=== PATIENT | female | born 1995 | race African-American/Black ===

== ENCOUNTER → 2016-03-25 | Outpatient (CLI) | payer MEDICAID ==
[~2016-03-25] MED LIST: COLA100C3 PO; DIFL150T PO; FERR325T PO; IBUP-232 PO; OXYC1TAB63 PO; PRENTAB16
== END ==
LOC: HPND 10:49
PROVIDERS: ATTEND Family Medicine
DX: O26.849 Uterine size-date discrepancy, unspecified trimester (principal)
CPT/HCPCS: 76816

== ENCOUNTER 2016-04-16 16:02 | Inpatient (IN) | payer MEDICAID ==
[~2016-04-16] VITALS: Ht 157.5 cm; Wt 89.8 kg
[~2016-04-16 16:02] MED LIST changes: -COLA100C3 PO; -DIFL150T PO; -IBUP-232 PO; -OXYC1TAB63 PO
[2016-04-19] VITALS (10 sets, daily range): BP systolic 115–148; BP diastolic 69–78; PULSE 86–106; RESP 16–20; TEMP 97.7–98.4; O2SAT 100
[2016-04-19] MEDS ORDERED: LACTATED RINGER'S 1000 ML INJ 1,000 ML IV ONE (07:11)
[2016-04-19] MEDS ORDERED: LACTATED RINGER'S 1000 ML INJ 1,000 ML IV SCH ×2 (07:41→15:08)
--- NOTE | 2016-04-19 07:50 | HHI.HP ---
HPI Chief Complaint for repeat CS BTL Date Seen: Apr 19, 2016 Time Seen: 07:40 Travel History International Travel<30 Days: No Contact w/Intl Traveler<30Days: No Known Affected Area: No History of Present Illness HPI previous CS x1 desires elective repeat with BTL at 39 1/7 weeks Para: 3 : 4 History Past Medical History Medical History: Denies Significant Hx Obstetric History Obstetric History x1 and csx1 Past Surgical History Narrative Surgical cs x 1 Family History Family History: Negative Social History Alcohol Use: No Tobacco Use: No Substance Abuse: No Allergies-Medications (Allergen,Severity, Reaction): Coded Allergies: No Known Allergies (Verified , 04/16/16) Home Meds Active Scripts Ferrous Sulfate 325 Mg Uhs064 Mg PO BID #60 TAB Ref 5 Prov:Cris Shah MD R2 01/20/16 Reported Medications Vit W/ Ferrous Fumara ( Complete 14-0.4 mg)1 Tab Tab 01/20/16 Physical Exam Vital Signs Date Time Temp Pulse Resp B/P Pulse Ox O2 Delivery O2 Flow Rate FiO2 04/19/16 07:15 18 04/19/16 07:11 106 115/69 Narrative GENERAL: Well-nourished, well-developed patient. SKIN: Warm and dry. HEAD: Normocephalic and atraumatic. EYES: No scleral icterus. No injection or drainage. ENT: No nasal drainage noted. Mucous membranes pink. Airway patent. NECK: Supple, trachea midline. No JVD. CARDIOVASCULAR: Regular rate and rhythm without murmurs, gallops, or rubs. RESPIRATORY: Breath sounds equal bilaterally. No accessory muscle use. BREASTS: Bilateral exam showed no masses , no retractions, no nipple discharge. ABDOMEN/GI: Abdomen soft, non-tender, bowel sounds present, no rebound, no guarding Gravid to 39 weeks size Fundal Height: [-] GENITOURINARY: External Genitalia: intact and normal in appearance BUS glands: [-] Cervix: [-] Dilatation: cl Effacement: [-] Station: vtx Presentation: [-] Membranes: intact Uterine Contractions: [-] FHT's: Category: 1 Baseline: [-] Reactive: [-] Variability: [-] Decels: [-] EXTREMITIES: No cyanosis or edema. BACK: Nontender without obvious deformity. No CVA tenderness. NEUROLOGICAL: Awake and alert. Motor and sensory grossly within normal limits. Five out of 5 muscle strength in all muscle groups. Normal speech. Data Data Vital Signs Reviewed: Yes Orders Admit To Inpatient (04/19/16 ) Code Status (04/19/16 07:11) Vital Signs (Adult) .ON ADMISSION (04/19/16 07:11) Activity Oob Ad Hannah (04/19/16 07:11) ^ Heart (04/19/16 07:11) Urinary Catheter Management NICOLE.Q8H (04/19/16 07:11) ^ Preps (04/19/16 07:11) Scd / Cosme / Foot Pump NICOLE.QSHIFT (04/19/16 07:11) ^ Ultrasound For Locatio (04/19/16 07:11) Diet Npo (04/19/16 Breakfast) Lactated Ringer's 1000 Ml Inj (Lr 1000 M (04/19/16 07:11) Lactated Ringer's 1000 Ml Inj (Lr 1000 M (04/19/16 07:41) Cefazolin 2 Gm Premix (Ancef 2 Gm Premix (04/19/16 08:15) Citric Acid-Sodium Citrate Liq (Bicitra (04/19/16 08:45) Type And Screen (04/19/16 07:11) Complete Blood Count With Diff (04/19/16 07:11) Urinalysis - C+S If Indicated (04/19/16 07:11) Inpatient Certification (04/19/16 ) Specimen To Be Collected PRN (04/19/16 07:11) Assessment/Plan Problem List: (1) Term , repeat (2) Previous section (3) Request for sterilization Assessment and Plan for CS BTL Mario Alberto Arvizu MD Apr 19, 2016 07:50
[2016-04-19 08:14] LABS: AUTOMATED NEUTROPHIL # 8.3 TH/MM3 (1.8-7.7); BASOPHIL # 0.1 TH/MM3 (0-0.2); BASOPHIL % 0.6 % (0.0-2.0); EOSINOPHIL # 0.1 TH/MM3 (0-0.4); EOSINOPHIL % 0.9 % (0.0-4.0); HEMATOCRIT 26.8 % (35.0-46.0); HEMO FLAGS DIFF FINAL; LYMPH % 23.9 % (9.0-44.0); LYMPHOCYTE # 2.9 TH/MM3 (1.0-4.8); MEAN CELL VOLUME 80.1 FL (80.0-100.0); MEAN CORPUSCULAR HEMOGLOBIN 25.8 PG (27.0-34.0); MEAN CORPUSCULAR HGB CONC 32.2 % (32.0-36.0); MONO % 5.8 % (0.0-8.0); NEUT % 68.8 % (16.0-70.0); PLATELET COUNT 254 TH/MM3 (150-450); RED BLOOD COUNT 3.35 MIL/MM3 (4.00-5.30); RED CELL DISTRIBUTION WIDTH 20.1 % (11.6-17.2); WHITE BLOOD COUNT 12.1 TH/MM3 (4.0-11.0)
[2016-04-19] MEDS ORDERED: ceFAZolin 2 GM PREMIX 50 ML IV SCH (08:15)
[2016-04-19 08:16] LABS: BACTERIA, URINE RARE /hpf; BLOOD, URINE NEG (NEG); COMMENT (UR) CULT NOT INDICATED; CULTURE IF INDICATED CULT NOT INDICATED; GLUCOSE,URINE NEG (NEG); KETONE, URINE NEG (NEG); MUCUS URINE FEW /lpf (OCC); NITRITE,URINE NEG (NEG); SQUAMOUS EPITHELIAL CELL URINE 1 /hpf (0-5); URINE COLOR LIGHT-YELLOW (YELLW/STRAW)
[2016-04-19] MEDS ORDERED: OXYTOCIN 10 UNIT/ML AMP ONE (08:38)
[2016-04-19] MEDS ORDERED: CITRIC ACID-SODIUM CITRATE LIQ 30 ML UDC PO SCH (08:45)
[2016-04-19] MEDS ORDERED: EPIDURAL-NALOXONE HCL 0.4 MG/ML AMP IV PRN (09:19)
[2016-04-19] MEDS ORDERED: EPIDURAL-DO NOT ADMINISTER ANTICOAGULANTS XX PRN (09:19)
[2016-04-19] MEDS ORDERED: EPIDURAL-DIPHENHYDRAMINE HCL 50 MG/ML VIAL IV PUSH PRN (09:19)
[2016-04-19] MEDS ORDERED: EPIDURAL-NO SYSTEMIC NARCOTICS XX PRN (09:19)
[2016-04-19] MEDS ORDERED: EPIDURAL-DIPHENHYDRAMINE HCL 50 MG CAP PO PRN (09:19)
--- NOTE | 2016-04-19 10:13 | PD.OB.DELI ---
Procedure Note Section Procedure Pre Op Diagnosis: (1) Term , repeat (2) Previous section Post Op Diagnosis: (1) Previous section (2) Request for sterilization Performed by Mario Alberto Arvizu Procedure: Repeat Low Transverse Sec, Other (BTL) Informed consent obtained: For anesthesia, For procedure Confirmed correct: Patient, Procedure, Time-out taken Anesthesia: Spinal Urinary catheter: Inserted using sterile technique, To dependent drainage Sterile preparation: Duraprep, In usual fashion Position: Supine with wedge to left side Operative Features Skin Incision: Pfannenstiel Uterine Incision: Low transverse w/knife / blunt ext Membranes Ruptured: Artificially Presentation: Occiput anterior Delivery of infant: Uneventful : Female, Single One Minute : 9 Five Minute : 9 Weight: 3050 Status of : Viable Placenta delivered: Intact Medications: Antibiotics Estimated blood loss: 500 Procedure tolerated: Well Maternal Condition: Stable Condition: Stable Mario Alberto Arvizu MD Apr 19, 2016 10:13
[2016-04-19] MEDS ORDERED: MIDAZOLAM HCL 5 MG/5 ML VIAL ONE (10:14)
[2016-04-19] MEDS ORDERED: MORPHINE SULFATE PF 5 MG/10 ML VIAL ONE (10:14)
[2016-04-19] MEDS ORDERED: SODIUM CHLORIDE 0.9% FLUSH 5 ML FLUSH IV PRN (10:15)
[2016-04-19] MEDS ORDERED: oxyCODONE/ACETAMINOPHEN 5 MG/325 MG TAB PO PRN (10:15)
[2016-04-19] MEDS ORDERED: SIMETHICONE 80 MG CHEWABLE TAB PO PRN (10:15)
[2016-04-19] MEDS ORDERED: OXYTOCIN 30 UNITS-500ML PREMIX 500 ML IV ONE (10:15)
[2016-04-19] MEDS ORDERED: KETOROLAC TROMETHAMINE 60 MG/2 ML (IM) VIAL IM PRN (10:15)
[2016-04-19] MEDS ORDERED: KETOROLAC TROMETHAMINE 30 MG/ML (IVP) VIAL ONE (10:39)
--- NOTE | 2016-04-19 10:59 | MP ---
cc: ESPERANZA ARVIZU DATE OF SURGERY: 04/19/2016 PROCEDURE Repeat low transverse section, bilateral tubal ligation. PREOPERATIVE DIAGNOSIS Desires permanent sterilization and a repeat . POSTOPERATIVE DIAGNOSIS Desires permanent sterilization and a repeat . SURGEON Dr. Esperanza Arvizu. ESTIMATED BLOOD LOSS 500 ccs. COMPLICATIONS None. ANESTHESIA Anesthesia was spinal, Dr. Kapil Reyes. COMPLICATIONS None. SPECIMEN Includes segment of left and right fallopian tube. PROCEDURE IN DETAIL After informed consent the patient was taken to the operating room where she was placed under spinal anesthesia, placed in supine position, left lateral tilt. The abdomen, perineum, vagina were prepped and draped in normal sterile fashion. After adequate anesthesia was assured and time-out was taken, a Pfannenstiel skin incision was carried sharply to the old scar to fascia. Fascia was nicked in midline, incision was extended laterally using Alfaro scissors. Rectus muscle was dissected off the fascia with sharp and blunt dissection. We entered the abdomen under direct visualization with blunt traction. Bladder blade was placed in the abdomen and a bladder flap was created by dissecting the bladder off the lower uterine segment. Low-transverse uterine incision was then made, carried sharply to the uterine cavity. Clear fluid was noted. The incision was extended laterally using blunt traction upward and downward. A hand was placed into the uterus. The 's head was guided through the incision, using fundal pressure, the infant's head was readily delivered. Nose and mouth were suctioned well. Cord was clamped and cut. The was handed to pediatrics in attendance. Cord blood was collected. Placenta was delivered manually. Uterus was exteriorized and wiped free from all remaining products of conception. The uterine incision was then closed with running locking stitch of Chromic suture. Good hemostasis was achieved. The left and right fallopian tubes were tied in [place] fashion without difficulty. The uterus was placed back in the abdomen and noted to be hemostatic. Both tubes were noted to be hemostatic and the incision was hemostatic. Peritoneum was closed with Chromic suture. The fascia was closed with Vicryl suture. Skin was closed with subcuticular stitches. Each layer was noted to be hemostatic prior to closure. The patient tolerated the procedure well. MD HECTOR [place]/ELANA /10:12 AM /10:49 AM
[2016-04-19] MEDS ORDERED: ACETAMINOPHEN 1000 MG/100 ML VIAL IV ONE ×2 (11:16→12:30)
[2016-04-19] MEDS ORDERED: diphenhydrAMINE HCL 25 MG CAP PO PRN (12:15)
[2016-04-19] MEDS ORDERED: ONDANSETRON HCL 4 MG/2 ML VIAL IV PUSH PRN (14:15)
[2016-04-19 19:04] LABS: AMPHETAMINE, URINE NEG (NEG); BARBITURATES, URINE NEG (NEG); COCAINE, URINE NEG (NEG)
[2016-04-19] MEDS ORDERED: OXYTOCIN 30 UNITS-500ML PREMIX 500 ML IV PRN (20:15)
[2016-04-19] MEDS: IBUPROFEN 600 MG TAB PO PRN (21:06)
[2016-04-19] MEDS: oxyCODONE/ACETAMINOPHEN 5 MG/325 MG TAB PO PRN (21:06)
[2016-04-19] MEDS: SODIUM CHLORIDE 0.9% FLUSH 5 ML FLUSH IV SCH (22:28)
[2016-04-20 00:40] VITALS: BP 151/76; PULSE 75; RESP 17; TEMP 97.9
[2016-04-20 06:18] LABS: AUTOMATED NEUTROPHIL # 13.3 TH/MM3 (1.8-7.7); BASOPHIL % 0.1 % (0.0-2.0); EOSINOPHIL # 0.1 TH/MM3 (0-0.4); EOSINOPHIL % 0.3 % (0.0-4.0); HEMATOCRIT 23.8 % (35.0-46.0); HEMO FLAGS DIFF FINAL; LYMPH % 12.9 % (9.0-44.0); LYMPHOCYTE # 2.2 TH/MM3 (1.0-4.8); MEAN CELL VOLUME 80.2 FL (80.0-100.0); MEAN CORPUSCULAR HEMOGLOBIN 26.4 PG (27.0-34.0); MEAN CORPUSCULAR HGB CONC 32.9 % (32.0-36.0); MONO % 7.2 % (0.0-8.0); NEUT % 79.5 % (16.0-70.0); PLATELET COUNT 219 TH/MM3 (150-450); RED BLOOD COUNT 2.97 MIL/MM3 (4.00-5.30); RED CELL DISTRIBUTION WIDTH 19.8 % (11.6-17.2); WHITE BLOOD COUNT 16.8 TH/MM3 (4.0-11.0)
--- NOTE | 2016-04-20 07:31 | HHI.OB ---
Subjective Post Operative Day: 1 Remarks 20 year old female G 4 P4 s/p repeat and tubal ligation at 39/1 wks gestation, POD 1. AFVSS but BP has intermittently been elevated around 150s systolic. Patient reports she is feeling well. Bleeding is decreasing and pain is well-controlled. She is formula feeding and bonding well with baby. Ambulating without difficulties. She is tolerating a diet without nausea or vomiting. She has not had a bowel movement. Denies chest pain, dysuria, shortness of breath, VUONG, vision changes or calf pain. (Cris Shah MD R2) Objective Vitals/I&O Vital Signs Date Time Temp Pulse Resp B/P Pulse Ox O2 Delivery O2 Flow Rate FiO2 04/20/16 00:40 97.9 75 17 151/76 04/19/16 19:40 97.7 86 20 148/78 100 04/19/16 18:00 18 04/19/16 17:28 18 04/19/16 16:23 18 04/19/16 16:00 16 04/19/16 14:51 18 04/19/16 14:00 18 04/19/16 07:52 98.4 (Cris Shah MD R2) Result Diagram: 04/20/16 0558 Objective Remarks GENERAL: Well-nourished, well-developed patient. CARDIOVASCULAR: Regular rate and rhythm without murmurs, gallops, or rubs. RESPIRATORY: Breath sounds equal bilaterally. No accessory muscle use. ABDOMEN/GI: Abdomen soft, non-tender. Incision: Bandage over incision with small amount of drainage present. Fundus: Firm, non-tender at umbilicus. GENITOURINARY: Light to moderate bleeding. EXTREMITIES: No cyanosis or edema, non-tender, without signs of DVT. Medications and IVs Current Medications Medications (Trade) Dose Ordered Sig/Skyler Route Start Time Stop Time Status Last Admin (Lr 1000 ml Inj) 1,000 ml @ 100 mls/hr Q10H IV 04/19/16 15:08 04/20/16 11:07 (NS Flush) 2 ml BID IV 04/19/16 21:00 04/19/16 22:28 (NS Flush) 2 ml UNSCH PRN IV 04/19/16 10:15 (Mylicon Chew) 80 mg QID PRN PO 04/19/16 10:15 (Motrin) 600 mg Q6H PRN PO 04/19/16 10:15 04/19/16 21:06 (Toradol Inj) 30 mg Q6H PRN IM 04/19/16 10:15 04/20/16 10:14 04/19/16 10:40 (Percocet 5-325 Mg) 1 tab Q4H PRN PO 04/19/16 10:15 (Percocet 5-325 Mg) 2 tab Q4H PRN PO 04/19/16 10:15 04/19/16 21:06 (M-M-R Ii Inj) 0.5 ml ONCE ONCE SQ 04/20/16 16:00 04/20/16 16:01 (Boostrix Inj) 0.5 ml ONCE ONCE IM 04/20/16 16:00 04/20/16 16:01 (Benadryl) 25 mg Q4H PRN PO 04/19/16 12:15 04/19/16 12:31 Miscellaneous Information NO SYSTEMIC NARCOTICS TO BE GIVEN FO... UNSCH PRN XX 04/19/16 09:19 04/20/16 09:18 (Narcan Inj) 0.4 mg UNSCH PRN IV 04/19/16 09:19 04/20/16 09:18 (Benadryl Inj) 25 mg Q6H PRN IV PUSH 04/19/16 09:19 04/20/16 09:18 04/19/16 22:27 (Benadryl) 50 mg Q6H PRN PO 04/19/16 09:19 04/20/16 09:18 Miscellaneous Information ALL NURSING DEPARTMENTS UNSCH PRN XX 04/19/16 09:19 04/20/16 09:18 (Zofran Inj) 4 mg Q6H PRN IV PUSH 04/19/16 14:15 04/19/16 16:23 (Cris Shah MD R2) Assessment/Plan Problem List: (1) Term , repeat (2) Previous section (3) Request for sterilization Assessment and Plan 20 yo female s/p repeat and tubal ligation POD 1. - AFVSS, SBP slightly elevated but patient asymptomatic. Continue to monitor - Continue routine care * UDS positive for opiates and benzos but this was after CS. UDS otherwise negative - Motrin and Percocet PRN pain - Encourage OOB - Pelvic rest x 6 wks. Will need a f/u appt in 1wk for incision check which has already been made - Contraception: Tubal ligation - Recommend post follow up in 1 wk - Anticipate D/C in 1-[address] Ronquillo (Cris Shah MD R2) Attending Attestation Case reviewed and discussed with the resident team. Agree with plan of care as discussed with me and documented in the resident note.Nicolle Ronquillo M.D. ( Nicolle Ronquillo MD) Cris Shah MD R2 Apr 20, 2016 07:31 Nicolle Ronquillo MD Apr 20, 2016 11:11
[2016-04-20] MEDS: IBUPROFEN 600 MG TAB PO PRN ×3 (07:32→23:55)
[2016-04-20] MEDS: oxyCODONE/ACETAMINOPHEN 5 MG/325 MG TAB PO PRN ×5 (07:32→23:55)
[2016-04-20 08:40] VITALS: BP 141/89; PULSE 72; RESP 18; TEMP 97.6
[2016-04-20] MEDS ORDERED: MEASLES, MUMPS, RUBELLA VACCINE 0.5 ML VIAL SQ ONE (16:00)
[2016-04-20] MEDS ORDERED: DIPHTH/TETANUS/ACEL PERTUSSIS (BOOSTER) 0.5 ML VIAL/PFS IM ONE (16:00)
[2016-04-20 17:15] VITALS: BP 110/70; PULSE 106; RESP 18; TEMP 98.9
--- NOTE | 2016-04-20 19:01 | HHI.OB ---
Subjective Post Day: 1 Remarks doing well ok for DC home POD # 2 wed 04/21 Objective Vitals/I&O Vital Signs Date Time Temp Pulse Resp B/P Pulse Ox O2 Delivery O2 Flow Rate FiO2 04/20/16 17:15 106 18 110/70 04/20/16 17:15 98.9 04/20/16 08:40 97.6 18 04/20/16 08:40 72 141/89 04/20/16 00:40 97.9 75 17 151/76 04/19/16 19:40 97.7 86 20 148/78 100 Objective Remarks GENERAL: Well-nourished, well-developed patient. . ABDOMEN/GI: Abdomen soft, non-tender. incision healing Fundus: Firm, non-tender at umbilicus. GENITOURINARY: Light to moderate bleeding. EXTREMITIES: No cyanosis or edema, non-tender, without signs of DVT. Medications and IVs Current Medications Medications (Trade) Dose Ordered Sig/Skyler Route Start Time Stop Time Status Last Admin (NS Flush) 2 ml BID IV 04/19/16 21:00 04/19/16 22:28 (NS Flush) 2 ml UNSCH PRN IV 04/19/16 10:15 (Mylicon Chew) 80 mg QID PRN PO 04/19/16 10:15 (Motrin) 600 mg Q6H PRN PO 04/19/16 10:15 04/20/16 15:13 (Percocet 5-325 Mg) 1 tab Q4H PRN PO 04/19/16 10:15 (Percocet 5-325 Mg) 2 tab Q4H PRN PO 04/19/16 10:15 04/20/16 15:14 (Benadryl) 25 mg Q4H PRN PO 04/19/16 12:15 04/19/16 12:31 (Zofran Inj) 4 mg Q6H PRN IV PUSH 04/19/16 14:15 04/19/16 16:23 Assessment/Plan Problem List: (1) Term , repeat (2) Previous section (3) Request for sterilization Assessment and Plan 20 yo female s/p repeat and tubal ligation POD 1. - AFVSS, SBP slightly elevated but patient asymptomatic. Continue to monitor - Continue routine care * UDS positive for opiates and benzos but this was after CS. UDS otherwise negative - Motrin and Percocet PRN pain - Encourage OOB - Pelvic rest x 6 wks. Will need a f/u appt in 1wk for incision check which has already been made - Contraception: Tubal ligation - Recommend post follow up in 1 wk - Anticipate D/C in 1-[address] Ronquillo Discharge Planning dc in AM Mario Alberto Arvizu MD Apr 20, 2016 19:01
[2016-04-21] MEDS: oxyCODONE/ACETAMINOPHEN 5 MG/325 MG TAB PO PRN ×2 (04:14→08:26)
[2016-04-21] MEDS: IBUPROFEN 600 MG TAB PO PRN (05:51)
[2016-04-21] MEDS ORDERED: IBUP-232 PO (06:35)
[2016-04-21] MEDS ORDERED: OXYC1TAB63 PO (06:35)
--- NOTE | 2016-04-21 06:36 | HHI.DCPOC ---
Discharge Care Plan Diagnosis: (1) delivery delivered (2) Status post tubal ligation Report Symptoms to Your Doctor -Temperate above 100.5 degrees -Redness, of incision or excessive or foul smelling drainage -Unusual pain or calf pain -Increased vaginal bleeding -Painful or difficulty urinating -Feelings of extreme sadness or anxiety after 2 weeks Goals to Promote Your Health * To prevent worsening of your condition and complications * To maintain your health at the optimal level Directions to Meet Your Goals Take your medications as prescribed Follow your dietary instruction Follow activity as directed Ensure plenty of rest for recovery Drink fluids for hydration Keep your appointments as scheduled Take your immunizations and boosters as scheduled If your symptoms worsen call your PCP, if no PCP go to Urgent Care Center or Emergency Room Smoking is Dangerous to Your Health. Avoid second hand smoke Call the 24-hour crisis hotline for domestic abuse at Cris Shah MD R2 Apr 21, 2016 06:36
[2016-04-21] MEDS ORDERED: COLA100C3 PO (06:57)
[2016-04-21] MEDS ORDERED: DOCUSATE SODIUM 100 MG CAP PO ONE (07:00)
--- NOTE | 2016-04-21 07:19 | HHI.OB ---
Subjective Post Operative Day: 2 Remarks 20 year old female G 4 P4 s/p repeat and tubal ligation at 39/1 wks gestation, POD 2. AFVSS but BP continues to be intermittently elevated around 140-150s systolic. Patient reports she is feeling well and is ready to go. Bleeding is decreasing and pain is well-controlled. She is formula feeding and bonding well with baby. Ambulating without difficulties. She is tolerating a diet without nausea or vomiting. She has not had a bowel movement. Denies chest pain, dysuria, shortness of breath, VUONG, vision changes or calf pain. (Cris Spencer MD R2) Objective Vitals/I&O Vital Signs Date Time Temp Pulse Resp B/P Pulse Ox O2 Delivery O2 Flow Rate FiO2 04/20/16 17:15 106 18 110/70 04/20/16 17:15 98.9 04/20/16 08:40 97.6 18 04/20/16 08:40 72 141/89 (Cris Shah MD R2) Result Diagram: 04/20/16 0558 Objective Remarks GENERAL: Well-nourished, well-developed patient. CARDIOVASCULAR: Regular rate and rhythm without murmurs, gallops, or rubs. RESPIRATORY: Breath sounds equal bilaterally. No accessory muscle use. ABDOMEN/GI: Abdomen soft. Incision: Clean but with minimal dried blood at left side of lesion but not actively draining. Fundus: Firm, mildy tender at umbilicus. GENITOURINARY: Light to moderate bleeding. EXTREMITIES: No cyanosis or edema, non-tender, without signs of DVT. Medications and IVs Current Medications Medications (Trade) Dose Ordered Sig/Skyler Route Start Time Stop Time Status Last Admin (NS Flush) 2 ml BID IV 04/19/16 21:00 04/19/16 22:28 (NS Flush) 2 ml UNSCH PRN IV 04/19/16 10:15 (Mylicon Chew) 80 mg QID PRN PO 04/19/16 10:15 (Motrin) 600 mg Q6H PRN PO 04/19/16 10:15 04/21/16 05:51 (Percocet 5-325 Mg) 1 tab Q4H PRN PO 04/19/16 10:15 (Percocet 5-325 Mg) 2 tab Q4H PRN PO 04/19/16 10:15 04/21/16 04:14 (Benadryl) 25 mg Q4H PRN PO 04/19/16 12:15 04/19/16 12:31 (Zofran Inj) 4 mg Q6H PRN IV PUSH 04/19/16 14:15 04/19/16 16:23 (Cris Shah MD R2) Assessment/Plan Problem List: (1) Term , repeat (2) Previous section (3) Request for sterilization Assessment and Plan 20 yo female s/p repeat and tubal ligation POD 2. - AFVSS, SBP slightly elevated but patient asymptomatic. Will have close follow up with appt on 04/23 - Continue routine care * UDS positive for opiates and benzos but this was after CS. UDS otherwise negative - Motrin and Percocet PRN pain - Encourage OOB - Pelvic rest x 6 wks. Will need a f/u appt in 1wk for incision check which has already been made - Contraception: Tubal ligation - Recommend post follow up in 1 wk - Anticipate D/C today dw Dr. Belcher Discharge Planning today (Cris Shah MD R2) Attending Attestation The exam, history, and the medical decision-making described in the above note were completed with the assistance of the resident provider. I reviewed and agree with the findings presented. I attest that I had a [id number] encounter with the patient on the same day, and personally performed and documented my assessment and findings in the medical record. (Sneha Belcher MD) Cris Shah MD R2 Apr 21, 2016 07:19 Sneha Belcher MD Apr 21, 2016 07:31
[2016-04-21 08:15] VITALS: BP 143/97; PULSE 84; RESP 20; TEMP 98.1
[2016-04-21] MEDS: SODIUM CHLORIDE 0.9% FLUSH 5 ML FLUSH IV SCH (09:00)
== END 2016-04-21 10:55 | disposition home or self-care (01) | DRG 766 ==
LOC: H2EB 04-19 06:56 → H1EA 04-19 11:57
PROVIDERS: ADMIT Family Medicine; ATTEND Family Medicine
PROC: 10D00Z1 Extraction of Products of Conception, Low, Open Approach (ICD-10-PCS; principal; 2016-04-19)
PROC: 0UB70ZZ Excision of Bilateral Fallopian Tubes, Open Approach (ICD-10-PCS; 2016-04-19)
DX: O34.211 Maternal care for low transverse scar from previous cesarean delivery (principal); Z37.0 Single live birth; Z3A.39 39 weeks gestation of pregnancy; Z30.2 Encounter for sterilization
CPT/HCPCS: 59025; 80307; 81001; 85025; 86850; 86900; 86901; 88302; J0131; J0690; J1200; J1885; J2250; J2274; J2405; J2590; J7120